=== PATIENT | female | born 1995 | race Caucasian/White ===

== ENCOUNTER → 2017-09-09 13:53 | Outpatient (CLI) | payer OTHER, SELFPAY ==
--- NOTE | 2017-09-09 13:56 | US_ITS ---
US OB transvaginal HISTORY: ITS.REASON: US OB- DATES ORDERING PHYSICIAN: Saul Jackson MD PATIENT AGE: 22 years COMPARISON: None FINDINGS: An intrauterine gestational sac is present with a pole with a crown-rump length of 3.74cm correlating to gestational age of 10w5d. heart tones are present with an FHR of 154 bpm's. The amnion and chorion have not yet fused. Adnexa: There is a 2 cm right corpus luteum. IMPRESSION: Live intrauterine gestation at 10 weeks 5 days as described above. Estimated due date by ultrasound is 04/02/2018
== END ==
PROVIDERS: Family Provider Family Medicine; PCP Family Medicine; Visit Provider Nurse Practitioner Obstetrics & Gynecology
DX: O26.841 Uterine size-date discrepancy, first trimester (principal)
CPT/HCPCS: 76830

== ENCOUNTER → 2017-11-17 13:04 | Outpatient (CLI) | payer OTHER, SELFPAY ==
--- NOTE | 2017-11-17 13:06 | US_ITS ---
US OB /maternal detail: INDICATION: ITS.REASON: US OB Complete 20wk+ Anatomy Scan ORDERING PHYSICIAN: Saul Jackson MD PATIENT AGE: 22 years TECHNIQUE: ultrasound transabdominal scanning. COMPARISON: No previous relevant studies. FINDINGS: Single viable intrauterine gestation. Cephalic position Currently. Placenta: Anterior no previa placenta grade 1. . The cervix appears satisfactory. Closed and measuring 2.3 in length. Complete survey performed and was unremarkable on the submitted images as in PACS. No discrete anomalies identified on survey imaging by technologist. Active fetus.Three-vessel cord with satisfactory umbilical cord insertion. Survey of brain & ventricles. In posterior fossa unremarkable Face and neck survey unremarkable. Nasion intact Diaphragm and chest views unremarkable 4- chamber heart imaged. Cine loop included. LVOT imaged Abdomen: Both kidneys noted and unremarkable. Stomach noted and satisfactory. Spine: Survey of the spine satisfactory with no anomalies identified nor imaged. Both arms and legs noted.. Appears to be a male gestation Amniotic Fluid: Adequate. Maternal adnexa: No significant findings encountered. Measurements: Average ultrasound age 20 weeks 6 days Gestational Age 20 weeks 4 days based on LMP 06/26/2017. Estimated due date by ultrasound age 1203/31/2018. Estimated weight 377 grams. +/- 5 5 g BPD = 21 weeks 0 days OFD = 21 weeks 3 days HC = 20 week 3 day AC = 20 week 5 day FL = 21 week 1 day Heart Rate = 152 Cerebellum = 20 week 4 day Humerus = 20 week 5 day HC/AC = 1.16.(1.09-1.26.) CI = 77%.(70-86%). FL/BPD is 71%. FL/AC is 23%. IMPRESSION: 21 week 0 day average ultrasound age Cephalic position Anterior placenta no previa Active fetus. Anatomical survey of unremarkable & WNL .
== END ==
PROVIDERS: Family Provider Family Medicine; PCP Family Medicine; Visit Provider Nurse Practitioner Obstetrics & Gynecology
DX: Z36.0 Encounter for antenatal screening for chromosomal anomalies (principal)
CPT/HCPCS: 76811

== ENCOUNTER → 2018-01-28 08:14 | Outpatient (CLI) | payer OTHER, SELFPAY ==
[2018-01-28 08:52] LABS: Glucose,Fasting 86 mg/dL (60-105)
[2018-01-28 10:05] LABS: Basophils % 0.4 % (0.1-2.0); Eosinophils # 0.1 K/mm3 (0.0-0.4); Hematocrit 37.9 % (37.0-47.0); Hemoglobin 12.6 g/dL (12.2-16.2); Lymphocytes # 2.1 K/mm3 (0.7-4.5); Lymphocytes % 20.8 K/mm3 (10-50); Mean Corpuscular HGB Conc 33.2 g/dL (31.8-35.4); Mean Corpuscular Hemoglobin 31.4 pg (27.0-31.2); Mean Corpuscular Volume 94.5 fl (81-99); Mean Platelet Volume 9.6 fl (7.4-10.4); Monocytes # 0.6 K/mm3 (0.1-1.0); Monocytes % 5.9 % (1.7-9.3); Neutrophils # 7.1 K/mm3 (1.8-7.8); Neutrophils % 71.9 % (37.0-80.0); Platelet Count 274 K/mm3 (142-424); Red Blood Count 4.01 M/mm3 (4.20-5.40); Red Cell Distribution Width 13.3 % (11.5-17.5); White Blood Count 9.9 K/mm3 (4.8-10.8)
[2018-01-28 10:55] LABS: Glucose 1 Hour 139 mg/dL (74-106)
[2018-01-29 18:10] LABS: HIV Screen 4th Generation wRfx Non Reactive (Non Reactive); Hepatitis B Surface Antigen Negative (Negative); Hepatitis C Antibody <0.1 s/co ratio (0.0-0.9); Rubella Antibodies, IgG <0.90 index (Immune >0.99)
[2018-01-29 18:11] LABS: Rapid Plasma Reagin Ab Titer Non Reactive (NonRea<1:1)
== END ==
PROVIDERS: PCP Emergency Medicine; Visit Provider Nurse Practitioner Obstetrics & Gynecology
DX: Z34.90 Encounter for supervision of normal pregnancy, unspecified, unspecified trimester (principal)
CPT/HCPCS: 36415; 82951; 85025; 86592; 86703; 86762; 86850; 87340; 87380; G0432

== ENCOUNTER → 2018-02-28 17:07 | Outpatient (CLI) | payer OTHER, SELFPAY | LOC: LAB 17:08 → LAB.DROPOF 17:12 | PROVIDERS: Visit Provider Nurse Practitioner Obstetrics & Gynecology | DX: Z34.90 Encounter for supervision of normal pregnancy, unspecified, unspecified trimester (principal); Z3A.35 35 weeks gestation of pregnancy | CPT/HCPCS: 86403 ==

== ENCOUNTER 2018-03-13 01:00 | Outpatient (CLI) | payer OTHER, SELFPAY ==
[2018-03-13 01:15] VITALS: BP 112/75; PULSE 99; RESP 16; TEMP 36.6; O2SAT 98; BMI 37.5
[2018-03-13 01:24] VITALS: BMI 37.5
[2018-03-13 01:34] LABS: Microscopic, Urine URINE MICROSCOPIC (MICROSCOPIC)
[2018-03-13 01:39] LABS: Appearance,Urine CLOUDY (Clear); Bilirubin,Urine Negative (Negative); Blood, Urine TRACE-I (Negative); Color,Urine DK YELLOW (Yellow); Glucose,Urine (UA) Negative (Negative); Ketones,Urine TRACE (Negative); Leukocyte Esterase,Urine 1+ (Negative); Nitrate,Urine Negative (Negative); Protein,Urine TRACE (Negative); Specific Gravity, Urine >= 1.030 (1.005-1.030); Urobilinogen,Urine 0.2 EU/dl (0.2)
[2018-03-13 01:43] LABS: Amorphous Sediment,Urine 1+ /lpf; Squamous Epithelial Cell,Urine 20-50 #/hpf (0-5)
[2018-03-13 01:49] LABS: Amphetamine/Metha Screen,Urine Negative ng/mL (<1000); Barbiturates Screen,Urine Negative ng/mL (<200); Benzodiazepines Screen,Urine Negative ng/mL (<200); Cannabinoid Screen,Urine Negative ng/mL (<50); Cocaine Screen,Urine Negative ng/mL (<300); Methadone Screen,Urine Negative ng/mL (<300); Opiate Screen,Urine Negative ng/mL (<300); Phencyclidine Screen,Urine Negative ng/mL (<25)
== END 2018-03-13 04:18 | disposition home or self-care (01) ==
LOC: OBOUT 01:02 → OB 01:03
PROVIDERS: PCP Emergency Medicine; Referring Provider Nurse Practitioner Obstetrics & Gynecology; Visit Provider Obstetrics & Gynecology
DX: O26.93 Pregnancy related conditions, unspecified, third trimester (principal); Z3A.37 37 weeks gestation of pregnancy; R10.2 Pelvic and perineal pain
CPT/HCPCS: 59025; 80305; 81001; 87086; 96360

== ENCOUNTER 2018-04-05 05:06 | Inpatient (IN) ==
[2018-04-05 06:06] LABS: Basophils % 0.3 % (0.1-2.0); Eosinophils # 0.1 K/mm3 (0.0-0.4); Eosinophils % 0.6 % (0.1-12.0); Hematocrit 39.8 % (37.0-47.0); Hemoglobin 13.2 g/dL (12.2-16.2); Lymphocytes # 2.4 K/mm3 (0.7-4.5); Lymphocytes % 22.7 % (10-50); Mean Corpuscular HGB Conc 33.2 g/dL (31.8-35.4); Mean Corpuscular Hemoglobin 30.4 pg (27.0-31.2); Mean Corpuscular Volume 91.4 fl (81-99); Mean Platelet Volume 8.9 fl (7.4-10.4); Monocytes # 0.5 K/mm3 (0.1-1.0); Monocytes % 4.3 % (1.7-9.3); Neutrophils # 7.7 K/mm3 (1.8-7.8); Platelet Count 321 K/mm3 (142-424); Red Blood Count 4.35 M/mm3 (4.20-5.40); Red Cell Distribution Width 13.9 % (11.5-17.5); White Blood Count 10.7 K/mm3 (4.8-10.8)
--- NOTE | 2018-04-05 08:32 | History & Physical Report ---
OB - H&P: HPI Antepartum - History of Present Illness Chief complaint: Post dates, oligohydramnios History of present illness: She is a 23-year-old 2 para 1 at 40+3 weeks gestational age. She was seen in my office yesterday for a postdates ultrasound and her ultrasound showed oligohydramnios with an amniotic fluid index of 6. As a result of that she is admitted for induction of labor. - History of Present Criteria for establishing EDC:: LMP confirmed by 1st trimester US care: good care Ultrasounds: normal 1st trimester US, normal mid trimester US Obstetrical complications: other Medical complications: none [facility] History I have reviewed the patient's past medical history: Yes Medical History: Denies:: Anxiety, Depression, Diabetes Mellitus Type 2 Other Surgeries: No: Amputation: No Fractures: No - *Social History Smoking Status: Current every day smoker Tobacco Type: cigarettes Alcohol Intake: never Substance Use Type: denies use - Psychiatric History Pschychiatric History:: Denies:: Anxiety, Depression *Family Hx:: No significant family history Para: 1 Review of Systems - Review of Systems Review of systems:: pertinent systems reviewed and negative unless documented below Meds Home Medications Medication Instructions Recorded Confirmed Type Vit Calc,Iron,Folic [Kpn] 1 tab PO DAILY 03/13/18 04/05/18 History Allergies Allergy/AdvReac Type Severity Reaction Status Date / Time amoxicillin Allergy Mild Rash Verified 04/05/18 07:22 tramadol [From Ultram] Allergy Mild Rash Verified 04/05/18 07:22 OB - H&P: Exam - Physical Exam Vital signs: Temp Pulse Resp BP Pulse Ox 98.6 F 102 H 20 130/68 100 04/05/18 08:00 04/05/18 08:00 04/05/18 08:00 04/05/18 08:00 04/05/18 05:51 - Constitutional no acute distress - Routine HEENT Exam Head: Present: normocephalic Eye: Present: EOMI, PERRL ENT: Present: mucous membranes moist - Routine Neck Exam Present: supple, full ROM - Routine Respiratory Exam Absent: accessory muscle use (good air entry bilaterally), respiratory distress, wheezes, crackles - Routine Cardiovascular Exam Present: RRR. Absent: murmur - Routine Abdominal Exam Present: soft, normoactive bowel sounds. Absent: tenderness, distended, guarding - Routine Rectal Exam Patient deferred: visual exam, digital exam - Routine Exam Patient deferred: external exam, groin exam, perineal exam - Routine Extremities Exam Present: full ROM. Absent: cyanosis, edema - Routine Skin Exam Present: intact. Absent: cyanosis - Routine Neurological Exam Present: alert, oriented X3 - Routine Psychiatric Exam Present: normal affect OB - Results - Labs Labs: Short CBC 04/05/18 Range/Units 05:50 WBC 10.7 (4.8-10.8) K/mm3 Hgb 13.2 (12.2-16.2) g/dL Hct 39.8 (37.0-47.0) % Plt Count 321 (142-424) K/mm3 OB - A/P Antepartum (1) Post-term Current visit: Yes Status: Acute (2) Oligohydramnios antepartum Current visit: Yes Status: Acute (3) Normal delivery at term Current visit: Yes Status: Acute - Additional Plan Planning to breastfeed?: Yes Plan: induction Additional Information:: She is 40 and 3 weeks gestational age with oligohydramnios. As a result of that we have admitted her for induction of labor.
--- NOTE | 2018-04-05 08:34 | Progress Note ---
Labor Note - Subjective: Date: 04/05/18 (n) Time: 08:33 regular contraction - Objective: NST:: Reactive Contractions:: every 2-3 minutes Cervical Dilation:: 4 Effacement:: 75% Station: -1 Membranes: artificially ruptured Comment:: Clear fluid - Fetus: Monitoring?: Yes monitoring type:: Internal and External Comment:: I inserted an IUPC - Assessment: Labor progressing?: Yes Cephalopelvic disproportion?: No Patient Problems: All Active Problems Post-term (Acute) Oligohydramnios antepartum (Acute) Normal delivery at term (Acute) (Acute) - Plan: Anesthesia for epidural?: Yes Continue to labor down?: Yes Plan for ?: No Continue to monitor?: Yes Start pushing?: No
--- NOTE | 2018-04-05 09:31 | Progress Note ---
[facility] Anesthesia Checklist - Patient Identification Patient Identification: Arm Band, Verbal (Name & ) - Structural Data Admitted From: Inpatient Planned Operative Procedure/s: labor epidural - Additional verifications Patient : Yes Anesthesia Reactions: No Hx Blood Transfusions: No Blood Transfusion Reaction: No Cephalosporin Allergy: No Previous Colonoscopy: No - Cardiovascular Assessment Heart Sounds: S1 & S2 Pulse Strength: Baseline Pulse Rhythm: Regular Peripheral Edema: No - Airway Assessment C-Spine Mobility Assessed: Yes TMJ Mobility Assessed: Yes Dentition: Good Dentition - Neurological Assessment Level of Consciousness: Awake, Alert, Appropriate Hx Seizures: No Numbness or tingling in extremities: No - Anesthesia Plan Anesthesia Risk discussed: Yes ASA Class: II Anesthesia Type: Epidural [facility] History I have reviewed the patient's past medical history: Yes Medical History: Denies:: Anxiety, Depression, Diabetes Mellitus Type 2 Other Surgeries: No: Amputation: No Fractures: No - *Social History Smoking Status: Current every day smoker Tobacco Type: cigarettes Alcohol Intake: never Substance Use Type: denies use - Psychiatric History Pschychiatric History:: Denies:: Anxiety, Depression *Family Hx:: No significant family history Para: 1
--- NOTE | 2018-04-05 10:07 | Progress Note ---
Labor Note - Subjective: Date: 04/05/18 Time: 10:06 regular contraction - Objective: NST:: Reactive Contractions:: every 2-3 minutes Cervical Dilation:: 9 Effacement:: 100% Station: +1 Membranes: artificially ruptured - Fetus: Monitoring?: Yes monitoring type:: Internal and External - Assessment: Labor progressing?: Yes Cephalopelvic disproportion?: No Patient Problems: All Active Problems Post-term (Acute) Oligohydramnios antepartum (Acute) Normal delivery at term (Acute) (Acute) - Plan: Anesthesia for epidural?: Yes Continue to labor down?: Yes Plan for ?: No Continue to monitor?: Yes Start pushing?: No
--- NOTE | 2018-04-05 11:09 | Procedure Note ---
- Delivery Note Delivery Date:: 04/05/18 Delivery Time:: 10:56 Anesthesia Type: Epidural Was labor medically induced?: Yes Induction method: per pitocin protocol Infant delivered prior to 39 weeks?: No Justification for early elective delivery:: Oligohydraminos Gender: Male at 1 minute: 7 at 5 minutes: 8 LAC or MLE?: LAC Delivery Procedure:: She is a 23-year-old 2 para 1 who was 40+3 weeks gestational age. She was brought in for induction of labor postdates because she had oligohydramnios. She was started on IV oxytocin and had her membranes ruptured. Under labor epidural she progressed to full dilation and delivered spontaneously a liveborn male child at 10:56 AM on the morning of April 05, 2018. On deliver the head it was and that there was a loose nuchal cord. This was easily reduced. This was followed by deliver the anterior shoulder and the rest of the 's body atraumatically. The oropharynx and nasopharynx were bulb suction. The baby cried spontaneously. The cord was clamped and cut and the was handed off to the nurses who assigned Apgars of 7 at 1 minute and 8 at 5 minutes. We then obtained cord blood as well as cord pH. Patient received IV oxytocin and using gentle traction on the cord and counter traction on the fundus I was able to easily deliver the placenta intact. It had a normal three-vessel cord. She had a small right labial tear that was repaired with interrupted 3-0 Vicryl Rapide suture. She has a positive blood, she is rubella nonimmune and was group A streptococcus negative. She plans to breast-feed. Her education department chair is Dr. Reyes. Estimated blood loss was approximately 400 cc. Laceration:: labial Placental Delivery Description: Spontaneous
[2018-04-06 07:36] LABS: Hemoglobin 10.6 g/dL (12.2-16.2)
--- NOTE | 2018-04-06 08:17 | Progress Note ---
Internal Medicine - PN: Subj *Date: 04/06/18 *Time: 08:17 Interval history: She is doing well this morning. She is eating and ambulating. She is bottlefeeding. Her lochia is normal. Exam Vital signs and Labs for Last 24 Hours: Temp Pulse Resp BP Pulse Ox 98.6 F 93 H 18 120/65 98 04/05/18 20:01 04/05/18 20:01 04/05/18 20:01 04/05/18 20:01 04/05/18 20:01 Laboratory Results - last 24 hr 04/05/18 11:07: Cord ABG pH 7.37 04/06/18 06:58: Hgb 10.6 L, Hct 32.0 L I & O for Last 24 hours: Intake & Output 04/03/18 04/04/18 04/05/18 04/06/18 11:59 11:59 11:59 11:59 Weight 209 lb - Constitutional no acute distress Assessment and Plan (1) Post-term Current visit: Yes Status: Acute Category: Medical Code(s): O48.0 - Post- term (2) Oligohydramnios antepartum Current visit: Yes Status: Acute Category: Medical Code(s): O41.00X0 - Oligohydramnios, unspecified trimester, not applicable or unspecified (3) Normal delivery at term Current visit: Yes Status: Acute Category: Medical Code(s): O80 - Encounter for full-term uncomplicated delivery - Assessment and plan all Dx Assessment and Plan for all problems:: She continues to do well. We will plan to send her home tomorrow.
[2018-04-06 10:39] VITALS: BP 110/56
--- NOTE | 2018-04-07 08:15 | Discharge Summary ---
General - General Admission date:: 04/05/18 Discharge date: 04/07/18 HPI HPI: She is a 23-year-old 2 now para 2 who was 40 and 3 weeks gestational age. She had low amniotic fluid on an ultrasound and has results that was admitted for delivery at post term Hospital Course Hospital Course: She was started on IV oxytocin and had her membranes ruptured. She progressed to full dilation and delivered spontaneously a liveborn male child at 10:56 AM on the morning of April 05, 2018. Baby was a liveborn male child weighing 8 pounds 12 ounces. He had Apgars of 7 and 8 at 5 minutes. She has done well and has remained afebrile throughout hospitalization. She is eating and drinking and ambulate in. She is bottlefeeding. She has a positive, she is rubella nonimmune and will receive MMR. She was group B streptococcus negative. Her advertising sales representative is Dr. Reyes. She is discharged home to follow-up with me in approximately 2 weeks time. She will continue with her vitamins and iron. She was given the usual instructions with respect to limiting her activity, driving and sexual activity. Objective Vital signs: Temp Pulse Resp BP Pulse Ox 98.1 F 90 18 110/56 L 98 04/06/18 08:00 04/06/18 08:00 04/06/18 08:00 04/06/18 08:00 04/06/18 08:00 no acute distress DS: Diagnosis - Discharge Diagnosis (1) Post-term Status: Acute (2) Oligohydramnios antepartum Status: Acute (3) Normal delivery at term Status: Acute Discharge Plan - Patient Discharge Instructions ACTIVITY: No heavy lifting DIET: continue same diet Patient Instructions: DI for Hemorrhage, DI for Labor and Delivery, Vaginal , DI for Depression - Follow up Plan Disposition: Home, Self-Long-Term Medications: Home Medications Medication Instructions Recorded Confirmed Type Vit Calc,Iron,Folic [Kpn] 1 tab PO DAILY 03/13/18 04/05/18 History Prescriptions/Medication Reconciliation: Continue Vit Calc,Iron,Folic [Kpn] 1 tab PO DAILY
== END 2018-04-07 10:25 | disposition home or self-care (01) ==
LOC: OB 05:29
PROVIDERS: ADMIT Nurse Practitioner Obstetrics & Gynecology; ATTEND Nurse Practitioner Obstetrics & Gynecology

== ENCOUNTER 2019-11-18 18:14 | Emergency (ER) | payer BC, OTHER, SELFPAY ==
[2019-11-18 18:08] VITALS: PULSE 97; RESP 16; TEMP 36.7; O2SAT 97; BMI 32.5
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
[2019-11-18 19:28] VITALS: BP 127/84; PULSE 97; RESP 16; TEMP 36.7; O2SAT 98
== END 2019-11-18 19:30 | disposition home or self-care (01) ==
PROVIDERS: Emergency Provider Emergency Medicine; PCP Emergency Medicine
DX: S80.11XA Contusion of right lower leg, initial encounter (principal); S02.2XXA Fracture of nasal bones, initial encounter for closed fracture; V49.9XXA Car occupant (driver) (passenger) injured in unspecified traffic accident, initial encounter; Y92.488 Other paved roadways as the place of occurrence of the external cause; F17.210 Nicotine dependence, cigarettes, uncomplicated; Z90.09 Acquired absence of other part of head and neck
CPT/HCPCS: 70160; 73590; 99282

== ENCOUNTER 2020-09-19 22:00 | Emergency (ER) | payer BC, OTHER, SELFPAY ==
[2020-09-19 22:24] VITALS: BP 126/80; PULSE 98; RESP 16; TEMP 36.9; O2SAT 98; BMI 25.7
--- NOTE | 2020-09-19 23:23 | HMH.EDMCLR ---
ED Disposition Clinical Impression: Medical clearance for incarceration Disposition: Home, Self-Care Condition on Discharge: Good Instructions: DI for Drug or Alcohol Withdrawal Referrals: Elijah Miles MD [Primary Care Provider] - - Critical Care Critical Care Time: No Attestation: On 09/19/20, the high probability of a clinically significant, sudden or life threatening deterioration of the following system(s) required my full and direct attention, intervention and personal management. The time I documented below is in addition to time spent performing reported procedures but includes the following listed in this critical care notation. Medical Decision Making - Medical Records Medical records reviewed: Yes: I reviewed the patient's medical records. - Patrice Inquiry Pt receiving controlled substance: No Vital Signs: 09/19/20 22:24 Temperature 98.5 F Temperature Source Oral Pulse Rate [Brachial] 98 H Respiratory Rate 16 Blood Pressure [Right Arm] 126/80 Blood Pressure Mean [Right Arm] 95 Blood Pressure Source [Right Arm] Manual Cuff/ Auscultation Blood Pressure Position [Right Arm] Sitting 02 Sat by Pulse Oximetry 98 Oxygen Delivery Method Room Air - Lab Data Lab results reviewed: Yes: I reviewed the patient's lab results. Orders (Tests/Meds): ORDERS Category Date Time Status Covid-19 Nasal PCR ([facility]) Routine Lab 09/19/20 23:20 Received Medical Clearance HPI - General Chief complaint: Medical Clearance Stated complaint: medical clearance Time Seen by Provider: 09/19/20 23:00 Mode of Arrival: Ambulatory Source of Information: Patient, Medical Record Limitations: No Limitations Description of Symptoms (Recalled from ER Triage Doc. by RN): Patient report brought into for medical clearance. States she has been withdrawing from drug. report that has been exposed to covid - History of Present Illness HPI Narrative: pt with drug use and reports exposure to covid-19 complaint: medical clearance requested Onset (ago): hour(s) Place: home Traumatic Symptoms: denies traumatic injury Associated Symptoms: denies other symptoms Treatments Prior to Arrival: none Home medications: Previous Rx's Medication Instructions Recorded Ibuprofen [Ibuprofen 600mg Tab] 600 mg PO Q6HP PRN #20 tab 11/18/19 Allergies/Adverse reactions: Allergies Allergy/AdvReac Type Severity Reaction Status Date / Time amoxicillin Allergy Mild Rash Verified 04/05/18 07:22 tramadol [From Ultram] Allergy Mild Rash Verified 04/05/18 07:22 [facility] History - Hepatitis A Screen Drug use history?: No High risk sexual behaviors?: Yes History of sexually transmitted infection?: No Currently employed?: No Childcare worker?: No Do you have indoor plumbing?: Yes Do you have electricity?: Yes Attestation statement:: This patient has been screened for Hepatitis A risk factors. I have reviewed the patient's past medical history: Yes Medical History: Denies:: Anxiety, Depression, Diabetes Mellitus Type 2, Seizures Other Medical History: Denies: Blood Transfusion Reaction Laterality Cases: Bilateral: Tonsillectomy Other Surgeries: No: Amputation: No Fractures: No Comment: T&A 2009 - Social History Smoking Status: Current every day smoker Tobacco Type: cigarettes # Packs/Day (cigarettes): 1 Alcohol Intake: never Substance Use Type: methamphetamine Occupational Status: unemployed - Psychiatric History Pschychiatric History:: Denies:: Anxiety, Depression Family Hx:: No significant family history ROS Obtained: Yes All systems reviewed & no additional complaints - Constitutional Constitutional: Denies fever(s) - Eyes Eyes: Denies eye discharge - ENT Ears, Nose, Mouth, and Throat: Denies sore throat - Cardiovascular Cardiovascular: Denies chest pain - Respiratory Respiratory: Denies shortness of breath, Reports cough - Gastrointestinal Gastrointestingal: Denies: abdominal serena
[2020-09-20 00:02] VITALS: BP 119/84; PULSE 90; RESP 16; TEMP 36.9; O2SAT 98
== END 2020-09-20 00:03 | disposition home or self-care (01) ==
PROVIDERS: Emergency Provider Emergency Medicine; PCP Emergency Medicine
DX: Z00.8 Encounter for other general examination (principal); Z20.822 Contact with and (suspected) exposure to COVID-19; F41.8 Other specified anxiety disorders; E11.9 Type 2 diabetes mellitus without complications; F17.210 Nicotine dependence, cigarettes, uncomplicated
CPT/HCPCS: 99283; U0003